=== PATIENT | male | born 1975 | race Caucasian/White ===

== ENCOUNTER 2018-01-05 07:04 | Emergency (ER) | payer OTHER, SELFPAY ==
[2018-01-05 07:05] VITALS: BMI 28.2
[2018-01-05 07:17] VITALS: TEMP 98.5
--- NOTE | 2018-01-05 08:09 | ED PDOC ---
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 Patient states pain worsens with movement. He denies any direct trauma or weakness. PMD: non provided Past Medical History Reviewed: Historical Data, Nursing Documentation, Vital Signs Vital Signs: Last Vital Signs Temp 98.5 F 01/05/18 07:14 Pulse 96 H 01/05/18 07:14 Resp 18 01/05/18 07:14 BP 137/91 H 01/05/18 07:14 Pulse Ox 96 01/05/18 07:14 - Medical History PMH: Anxiety - Surgical History Surgical History: No Surg Hx - Family History Family History: States: Diabetes, Hypertension Denies: VT (at early age) - Social History Current smoker - smoking cessation education provided: No Alcohol: Social Drugs: Denies - Immunization History Hx Tetanus Toxoid Vaccination: No Hx Influenza Vaccination: No Hx Pneumococcal Vaccination: No - Home Medications Home Medications: Ambulatory Orders Medication Instructions Recorded Diazepam [Valium] 2 mg PO BID PRN #15 tablet 12/25/17 Naproxen 375 mg PO BID PRN #20 tablet 12/25/17 Naproxen [Naprosyn] 500 mg PO BID PRN #15 tablet 01/05/18 - Allergies Allergies/Adverse Reactions: Allergies Allergy/AdvReac Type Severity Reaction Status Date / Time No Known Allergies Allergy Verified 08/26/17 17:49 Review of Systems ROS Statement: Except As Marked, All Systems Reviewed And Found Negative Musculoskeletal: Positive for: Shoulder Pain (left), Arm Pain (Left elbow) Neurological: Negative for: Weakness Physical Exam - Reviewed Nursing Documentation Reviewed: Yes Vital Signs Reviewed: Yes - Physical Exam Appears: Positive for: Non-toxic, No Acute Distress Head Exam: Positive for: ATRAUMATIC, NORMOCEPHALIC Skin: Positive for: Normal Color, Warm Pulses-Radial (L): 2+ Extremity: Positive for: Normal ROM (at left shoulder and left elbow). Negative for: Deformity, Other (weakness or anesthesia) Neurologic/Psych: Positive for: Alert, Oriented - ECG O2 Sat by Pulse Oximetry: 96 (RA) Pulse Ox Interpretation: Normal Medical Decision Making Medical Decision Making: Time:749 Initial Impression: elbow strain Initial Plan: --Motrin 600 mg PO --Elbow Right 3 Views Time: 831 Elbow X-Ray FINDINGS: BONES: No acute fracture. JOINTS: Unremarkable. SOFT TISSUES: Normal. JOINT EFFUSION: None. OTHER FINDINGS: None IMPRESSION: No demonstrated fracture or dislocation. Time: 920 Patient is stable for discharge. He is given instructions to follow up with [facility] in 2 -3 days. Scribe Attestation: Documented by Gloria Hall, acting as a scribe for Kena Gray MD. Provider Scribe Attestation: All medical record entries made by the Scribe were at my direction and personally dictated by me. I have reviewed the chart and agree that the record accurately reflects my personal performance of the history, physical exam, medical decision making, and the department course for this patient. I have also personally directed, reviewed, and agree with the discharge instructions and disposition. Disposition - Clinical Impression Clinical Impression: Elbow strain - Disposition Disposition: Routine/Home Disposition Time: 09:21 Condition: STABLE Additional Instructions: FOLLOW-UP WITH [facility] FOR REEVALUATION. Prescriptions: Naproxen [Naprosyn] 500 mg PO BID PRN #15 tablet PRN Reason: Pain, Moderate (4-7) Instructions: Muscle Strain Forms: [employer] 2000 [employer] (Somali)
[2018-01-05 09:24] VITALS: BP 138/82; PULSE 84; RESP 20
[2018-01-05 09:25] VITALS: O2SAT 96
--- NOTE | 2018-01-05 09:46 | RAD ---
PROCEDURE: Radiographs of the left elbow. HISTORY: Elbow pain COMPARISON: No prior. FINDINGS: BONES: No acute fracture. JOINTS: Unremarkable. SOFT TISSUES: Normal. JOINT EFFUSION: None. OTHER FINDINGS: None IMPRESSION: No demonstrated fracture or dislocation.
== END 2018-01-05 09:20 | disposition home or self-care (01) ==
LOC: H.ER 07:04
DX: S56.919A Strain of unspecified muscles, fascia and tendons at forearm level, unspecified arm, initial encounter (principal); F41.9 Anxiety disorder, unspecified; X50.9XXA Other and unspecified overexertion or strenuous movements or postures, initial encounter; Y99.0 Civilian activity done for income or pay